=== PATIENT | female | born 1960 | race Caucasian/White ===

== ENCOUNTER 2020-05-18 08:21 | Inpatient (IN) ==
[~2020-05-18 08:21] MED LIST: ISOPROPYL ALCOHOL 480 APPL BTL MC ONE; MORPHINE SULFATE 15 MG TABLET.SA PO PRN; ROPIVACAINE HCL/PF 100 MG, EPINEPHrine 0.2 MG, KETOROLAC TROMETHAMINE 30 MG in NORMAL S... IJ PRN; TRANEXAMIC ACID 1,000 MG in NORMAL SALINE 100 ML IV PRN; ceFAZolin SODIUM 1 GM VIAL IV PRN; ceFAZolin SODIUM 1 GM VIAL ONE
[2020-05-18] MEDS ORDERED: BUPIVACAINE HCL/EPINEPHRINE 50 ML VIAL IJ ONE (08:49)
[2020-05-18] MEDS ORDERED: PROPOFOL VIAL IV ONE (08:50)
[2020-05-18] MEDS ORDERED: MIDAZOLAM HCL/PF 5 MG/ML VIAL ONE (08:50)
[2020-05-18] MEDS ORDERED: BUPIVACAINE HCL/PF 10 ML VIAL ONE (08:50)
[2020-05-18] MEDS: RINGER'S SOLUTION,LACTATED 1,000 ML IV PRN ×3 (08:54→11:05)
--- NOTE | 2020-05-18 09:15 | ANES ---
Anesthesia Pre Procedure Eval Vitals/Labs: Last Vital Signs Temp 36.7 C 05/18/20 08:32 Pulse 96 05/18/20 08:32 Resp 18 05/18/20 08:32 BP 125/73 05/18/20 08:32 Pulse Ox 96 05/18/20 08:32 HOME MEDICATIONS acetaminophen 500 mg tablet 500 mg PO Q6H PRN 05/23/19 [Last Taken Unknown] glucosamine HCl 500 mg tablet 500 mg PO DAILY 05/23/19 [Last Taken Unknown] ibuprofen 200 mg tablet 400 mg PO TID-QID PRN tab 05/23/19 [Last Taken Unknown] multivitamin 1 cap PO DAILY 05/23/19 [Last Taken Unknown] calcium carbonate 600 mg (1,500 mg)-vitamin D3 500 unit capsule 1 cap PO DAILY 04/28/20 [Last Taken Unknown] diphenhydramine HCl 25 mg capsule 50 mg PO HS cap 04/28/20 [Last Taken Unknown] melatonin 10 mg capsule 10 mg PO HS 04/28/20 [Last Taken Unknown] Allergies/Adverse Reactions: Allergies Allergy/AdvReac Type Severity Reaction Status Date / Time No Known Allergies Allergy Verified 05/18/20 08:34 - Planned Procedure Planned Procedure: RTKA 05/18, LTKA 05/20 Medication List Reviewed:: Yes Allergies Verified: Yes Medical History (Last Reviewed 05/18/20 @ 09:13 by Perez Tucker CRNA) Bilateral knee pain Onset Date: Unknown Irritable bowel syndrome (IBS) Onset Date: Unknown Seasonal allergies Onset Date: Unknown Surgical History (Last Reviewed 05/18/20 @ 09:13 by Perez Tucker CRNA) History of section x2 History of tonsillectomy Onset Date: Unknown as a child Family History (Last Reviewed 05/18/20 @ 09:13 by Perez Tucker CRNA) Mother A-fib Hypertension Kidney failure Father Motor vehicle accident - Family Anesthesia History Family History:: no untoward family reactions to anesthesia - Airway/Neck/Teeth Within Normal Limits:: Yes Teeth Condition: intact Denture Type: None Neck Exam: full range of motion Mallampatti Score: 2 Thyromental (T-M) distance: > 6 cm Mandibulo Hyoid distance: > 3 cm - Respiratory Respiratory Physical: lungs clear Smoking Status: Never smoker Sleep Apnea currently treated: No Sleep Apnea by current assessment: No - Cardiovascular Tolerate Activity: Fair Heart Sounds: S1 & S2, Regular - Gastrointestinal NPO since: [place] - Anesthesia Assessment and Plan ASA Class: PS, II Anesthesia Type Plan: Spinal - adductor canal block Planned difficult intubation/equipment available: No
[2020-05-18] MEDS ORDERED: MAG HYDROX/ALUMINUM HYD/SIMETH 30 ML UDC PO PRN (11:28)
[2020-05-18] MEDS ORDERED: MORPHINE SULFATE 2 MG/ML DISP.SYRIN IV PRN (11:28)
[2020-05-18] MEDS ORDERED: MAGNESIUM HYDROXIDE 30 ML UDC PO PRN (11:28)
[2020-05-18] MEDS ORDERED: diphenhydrAMINE HCL 50 MG/ML VIAL IV PRN (11:28)
[2020-05-18] MEDS ORDERED: ZOLPIDEM TARTRATE 5 MG TABLET PO PRN (11:28)
[2020-05-18] MEDS ORDERED: ACETAMINOPHEN 500 MG TABLET PO PRN (11:28)
--- NOTE | 2020-05-18 11:28 | OR ---
Operative Report - Dictated Report Narrative: Date: 05/18/2020 Preoperative diagnosis: Right knee degenerative joint disease. Postoperative diagnosis: Right knee degenerative joint disease. Procedure: Right total knee arthroplasty. Surgeon: Rodrigo King M.D. Airway Traffic Controller: Flo Ryan PA-C (provided and essential set of skilled, educated hands that assisted with transfer, positioning, prepping, draping, manipulation, retraction, placement of jigs, injection, insertion of implants, irrigation, closure wounds, and dressings all of which could not be performed by the available surgical crew) Anesthesia: Spinal with regional block and local periarticular joint injection. Complications: None Specimens: Bone. Estimated blood loss: Minimal. Tourniquet time: 90 Minutes at 325 millimeters of mercury. Retained implants: Depuy Attune size 6 narrow right lugged cemented posterior stabilized femoral component. Size 4 fixed-bearing cemented tibial platform. 6 by 5 millimeter posterior stabilized cross-linked tibial insert. 35 millimeter medialized patella button. Indications: Mrs. Austin is a 59-year-old female who with longstanding bilateral knee pain and arthrosis. She is here today for her first of 2 staged bilateral total knee arthroplasties. Today is the right. This patient was followed in my clinic for period of time with significant complaints of right knee pain consistent with arthritic changes. She had failed conservative measures including, but not limited to, activity modification, passage of time, medications, and other conservative measures. Patient wished to proceed with surgical treatment. The risks, benefits, and alternatives were discussed in clinic. The risks of , blood clots, bleeding, infection, nerve/tendon blood vessel/ injury, malposition of components, intraoperative fracture, postoperative limited range of motion, persistent pain, failure of components, and need for additional procedures. Patient wished to proceed consent was obtained after answering all questions. Procedure: After marking the correct extremity on the floor, the patient was miki en to the operating room. A timeout was performed. IV antibiotics consisting of Ancef were administered prior to the procedure. A regional followed by spinal anesthetic was induced by anesthesia, per my request, on the operative table with all bony prominences well-padded. Bell catheter was placed, and a bump was placed under the operative side buttock. SCDs and JUDITH hose were utilized on the nonoperative leg. A well-padded tourniquet was applied to the operative thigh. The operative leg was then pre-scrubbed with alcohol, prepped, and draped in a standard sterile fashion. After exsanguinating the extremity with an Esmarch bandage, the tourniquet was inflated. After marking out the anterior knee for standard incision centered over the patella, the skin was incised and dissected down to the joint retinaculum. The joint retinaculum was marked out as well as the horizontal axis of the patella, and a standard medial parapatellar arthrotomy was then made. The most proximal aspect of the quadriceps tendon and the patella tendon insertion were protected from release. A partial synovectomy was performed as well as a resection of the infrapatellar fat pad. The distal femoral fat pad proximal to the trochlea was also resected using cautery. The soft tissues were elevated off the medial aspect of the proximal tibia using a Blanton elevator ensuring that we did not transect the medial collateral ligament. Upon initial evaluation range of motion was approximately 5 degrees to 110 degrees of flexion. There were signs of advanced arthrosis in the medial and patellofemoral greater than lateral joint spaces. There were large marginal osteophytes which were removed with a rongeur. The knee was hyperflexed and the patella was tucked laterally. Protecting the surrounding soft tissues with Homans, an entry drill was placed down the femoral canal using Whitesides line for guidance into the entry point. The intramedullary femoral alignment elliot was utilized in order to cut the distal femur in 5 degrees of valgus resecting 10 millimeters of bone. Next the distal femur was sized to a size 6. A posterior referencing guide was utilized to place the distal femoral cutting block in 3 degrees of external rotation. This was pinned into place. The rotation was confirmed both visually and based on anatomic landmarks. The 4 in 1 cutting jig of the appropriate size was utilized in order to make all bony cuts. The bhavin wing was used to ensure no notching. Retractors were utilized in order to protect surrounding soft tissues. This cut did not result in any excessive notching. We then cut the box centered over the distal femur. This allowed for resection of the anterior and posterior cruciate ligaments. I then turned my attention to the preparation of the tibia. Using an extra medullary tibial alignment elliot, 5 millimeters of bone was resected off the medial articular surface. This was made perpendicular to the mechanical axis of the joint with the alignment elliot centered over the ankle mortise. The alignment elliot was checked and was noted to be parallel to the mechanical axis, centered over the medial one third of the tibial tubercle, paralleling the anterior surface of the tibia. We then turned our attention to the remaining meniscus and soft tissues. These were removed while protecting the surrounding ligaments and soft tissues. The marginal osteophytes off the anterior, posterior, medial, lateral aspects of the femur and tibia were removed. The tibia was sized out to a size 4. Next the tibia was drilled and punched in an externally rotated position. Next the trial femur and a series of tibial inserts were utilized in order to allow for full extension and maximal flexion. It was found that a 5 millimeter insert gave the best range of motion and stability at multiple flexion points as well as at full extension there was less than 2 mm of gapping both medially and laterally. There is minimal anterior translation with the knee at 90 degrees of flexion and no signs of being able to dislocate the knee. The patella was then prepared. The initial thickness was 20 millimeters. This was reamed down to 12 millimeters parallel to the anterior surface of the patella. It was sized out to a size 35 medialized patella button. This was then drilled and trialed. Without any medial restraint the patella tracked appropriately and did not sublux or dislocate. At this point, it was felt these were the appropriate sized implants, and all trials were removed. The standard periarticular joint injection consisting of ropivacaine, Toradol, and epinephrine were injected into the periarticular joint tissues. The bony surfaces were thoroughly irrigated with a pulsatile-suction saline irrigation device. A bone plug from the prior resected anterior chamfer cut was placed into the drill hole at the distal femur. The bony surfaces were then dried in preparation for placement of the implants. The cement was vacuum mixed per the polystyrene bead molder's instructions. The cement was placed on the dry bony surfaces and posterior aspect of the implants. The implants were impacted into place, removing all extruded cement. At this point anesthesia administered tranexamic acid per protocol intravenously. The knee was placed in extension with axial loading with the trial insert while the cement cured. Once the cement cured, all remaining extruded cement was removed. The knee was placed through a range of motion with the trial insert to ensure appropriate range of motion and stability. Final range of motion was approximately 0 to 120 degrees. The knee was again thoroughly irrigated with pulsatile saline lavage. The final polyethylene insert was then impacted into place ensuring no retained soft tissues. The remaining periarticular joint injection was injected. A medium Hemovac drain was placed exiting superior laterally. The knee was then placed over a triangle and the arthrotomy was closed with interrupted #1 Vicryl after thoroughly irrigating the joint. The deep and subcutaneous tissues were closed with interrupted 0 and 3-0 Vicryl respectively. Skin was closed with a running subcutaneous 3-0 Monocryl and Prineo Dermabond dressing. 4 x 4's, Sof-Rol, and a full leg Enrike wrap were applied. All sponge, needle, blade, and instrument counts were correct prior to closing the wounds. Postoperative condition: The patient was awoken and transferred to the postanesthesia care unit in stable condition. Plan is to be admitted to the inpatient medical/surgical floor postoperatively for 24 hours of IV antibiotics, physical therapy, occupational therapy, and medical comanagement. Patient will be weightbearing as tolerated with range of motion as tolerated. DVT prophylaxis will be with SCDs, JUDITH hose, and pharmacological anticoagulation. Anticipated hospital stay is approximately 1-3 days.
--- NOTE | 2020-05-18 11:46 | ANES ---
Post Anesthesia Discharge - Transfer of Care Transfer of Care handoff given to nurse: Yes - Discharge from PACU Discharge from PACU when meets criteria: Yes
--- NOTE | 2020-05-18 11:49 | ANES ---
Anesthesia Procedure Note Procedure Note: ANESTHESIA PROCEDURE NOTE Date of procedure: 05/18/2020. Time of procedure: 08 05. Performed by: Claudio Tucker CRNA Senior Data Mining Analyst: Miya Duncan RN . Preprocedure diagnosis: Right knee DJD. Post procedure diagnosis: Same. Procedure: Ultrasound-guided right adductor canal block Indications: Postoperative analgesia. Findings: Patient was brought operating room #2 and given a spinal anesthetic. Patient's right inner thigh was prepped with ChloraPrep. Ultrasound utilized to identify the saphenous nerve in the right adductor canal. 20-gauge 4 inch regional block needle was advanced under ultrasound guidance until tip of needle was placed just proximal to the saphenous nerve. 30 mL of 0.25% Marcaine with epinephrine 1-200,000 was injected with adequate spread of local anesthesia noted around the nerve. Regional block needle was removed intact. EBL: Minimal. Fluids: N/A. Specimen: N/A. Post procedure condition: The patient tolerated the procedure well. No complications were noted. Thank you for this consultation Claudio Tucker CRNA
--- NOTE | 2020-05-18 11:50 | ANES ---
Post Anesthesia Assessment - Vital Signs Vitals: Last Vital Signs Temp 36.7 C 05/18/20 11:40 Pulse 65 05/18/20 11:45 Resp 20 05/18/20 11:45 BP 121/65 05/18/20 11:45 Pulse Ox 98 05/18/20 11:45 Airway Patency: Normal - Mental Status Level Of Consciousness: Drowsy - Pain Level Pain Score: 0 - N/V Assessment Nausea/Vomiting Presence: None Dehydration:: No
[2020-05-18] MEDS: DEXTROSE 5%-LACTATED RINGERS 1,000 ML IV PRN (12:26)
[2020-05-18] MEDS: KETOROLAC TROMETHAMINE 15 MG/ML VIAL IV SCH ×2 (14:00→19:19)
[2020-05-18] MEDS: ONDANSETRON HCL/PF 2 MG/ML VIAL IV PRN (15:19)
[2020-05-18] MEDS: ceFAZolin SODIUM 1 GM in DEXTROSE 5 % IN WATER 100 ML IV SCH ×4 (15:26→20:47)
[2020-05-18] MEDS: oxyCODONE HCL/ACETAMINOPHEN 1 TAB TABLET PO PRN (16:16)
[2020-05-18] MEDS: SENNOSIDES/DOCUSATE SODIUM 1 TAB TABLET PO SCH (20:46)
[2020-05-18] MEDS: MORPHINE SULFATE 15 MG TABLET.SA PO SCH (20:47)
[2020-05-18] MEDS: MELATONIN 3,000 MCG TABLET PO SCH (22:36)
[2020-05-19] MEDS: KETOROLAC TROMETHAMINE 15 MG/ML VIAL IV SCH ×4 (02:00→19:39)
[2020-05-19] MEDS: ceFAZolin SODIUM 1 GM in DEXTROSE 5 % IN WATER 100 ML IV SCH ×2 (02:01)
[2020-05-19 06:29] LABS: Hematocrit 33.4 % (37.0-47.0); Hemoglobin 11.1 gm/dL (12.5-16.0); Mean Cell Volume 93.8 fl (78-100); Mean Corpuscular Hemoglobin 31.2 pg (27-31); Mean Corpuscular Hgb Conc 33.2 g/dl (32-36); Mean Platelet Volume 9.2 fl (8-12.5); Platelet Count 185 K/mm3 (150-450); Red Blood Count 3.56 M/mm3 (4.2-5.4); Red Cell Distribution Width 11.9 % (11.5-14.0)
[2020-05-19] MEDS: oxyCODONE HCL/ACETAMINOPHEN 1 TAB TABLET PO PRN ×4 (06:29→16:45)
[2020-05-19 06:38] LABS: Anion Gap 5.7 mmol/L (6.8-13.8); BUN/Creatinine Ratio 10.4 (9.0-21.6); Calcium * 9.1 mg/dL (7.9-10.9); Potassium 3.7 mmol/L (3.4-4.6)
[2020-05-19] MEDS ORDERED: ceFAZolin SODIUM 1 GM VIAL IV PRN (07:54)
--- NOTE | 2020-05-19 07:59 | PN ---
Subjective - Date and Time Seen Date: 05/19/20 Time: 07:55 Subjective Narrative: Patient reports pain is controlled. No lightheadedness or dizziness. No chest pain or shortness of breath. Has no complaints at this time. Was able to eat breakfast this morning. Nursing reports she is doing well. Objective Objective Narrative: Patient is up in chair. She is alert and oriented. In no distress. Bandages clean dry intact. Drain intact. Calf supple. Patient is able to plantarflex and dorsiflex right ankle. Reports sensation intact. Labs reviewed showing a hemoglobin of 11.1 down from 12.3 preoperatively. Vital signs stable. Drain output decreasing. - Vitals Vitals: Last Vital Signs Temp 37.5 C 05/19/20 06:36 Pulse 65 05/19/20 06:36 Resp 16 05/19/20 06:36 BP 156/74 H 05/19/20 06:36 Pulse Ox 94 05/19/20 06:36 - Abnormal Lab Findings Abnormal Lab Findings: Abnormal Lab Results 05/19/20 05/19/20 Range/Units 06:25 06:25 RBC 3.56 L (4.2-5.4) M/mm3 Hgb 11.1 L (12.5-16.0) gm/dL Hct 33.4 L (37.0-47.0) % MCH 31.2 H (27-31) pg Carbon Dioxide 33.0 H (24-32.6) mmol/L Anion Gap 5.7 L (6.8-13.8) mmol/L - Exam Constitutional: Present: Alert, Oriented x3, Cooperative, No distress Cauti Physician Documentation - Urinary Catheter Management Urethral (Bell) Date of Insertion: 05/18/20 Time of Insertion: 09:50 Assessment/Plan - Problems/Diagnosis (1) Status post right knee replacement Problem: Acute Narrative: Pain control, physical therapy, anticoagulation, patient will be n.p.o. at midnight tonight in preparation for left total knee arthroplasty tomorrow, leg was marked today. (2) Acute blood loss anemia Problem: Acute Narrative: Asymptomatic, observation
[2020-05-19] MEDS: MORPHINE SULFATE 15 MG TABLET.SA PO SCH ×2 (08:47→21:36)
[2020-05-19] MEDS: CALCIUM CARBONATE/VITAMIN D3 1 TAB TABLET PO SCH (08:47)
[2020-05-19] MEDS: MULTIVITAMINS 1 CAP CAPSULE PO SCH (08:47)
[2020-05-19] MEDS ORDERED: ENOXAPARIN SODIUM 40 MG/0.4 ML SYRG SC SCH (10:28)
[2020-05-19] MEDS: SENNOSIDES/DOCUSATE SODIUM 1 TAB TABLET PO SCH (21:36)
[2020-05-19] MEDS: MELATONIN 3,000 MCG TABLET PO SCH (21:36)
[2020-05-20] MEDS: KETOROLAC TROMETHAMINE 15 MG/ML VIAL IV SCH ×5 (00:16→22:29)
[2020-05-20] MEDS: oxyCODONE HCL/ACETAMINOPHEN 1 TAB TABLET PO PRN ×3 (04:55→22:11)
[2020-05-20] MEDS ORDERED: TRANEXAMIC ACID 1,000 MG in NORMAL SALINE 100 ML IV PRN (06:00)
[2020-05-20] MEDS ORDERED: ceFAZolin SODIUM 1 GM VIAL IV PRN (06:00)
[2020-05-20] MEDS ORDERED: ROPIVACAINE HCL/PF 100 MG, EPINEPHrine 0.2 MG, KETOROLAC TROMETHAMINE 30 MG in NORMAL S... IJ PRN (06:00)
[2020-05-20] MEDS: RINGER'S SOLUTION,LACTATED 1,000 ML IV PRN ×2 (06:40→09:50)
--- NOTE | 2020-05-20 07:20 | ANES ---
Anesthesia Pre Procedure Eval Vitals/Labs: Last Vital Signs Temp 36.7 C 05/19/20 23:17 Pulse 55 L 05/20/20 02:06 Resp 16 05/20/20 02:06 BP 114/59 05/20/20 02:06 Pulse Ox 97 05/19/20 23:17 HOME MEDICATIONS acetaminophen 500 mg tablet 500 mg PO Q6H PRN 05/23/19 [Last Taken Unknown] glucosamine HCl 500 mg tablet 500 mg PO DAILY 05/23/19 [Last Taken Unknown] ibuprofen 200 mg tablet 400 mg PO TID-QID PRN tab 05/23/19 [Last Taken Unknown] multivitamin 1 cap PO DAILY 05/23/19 [Last Taken Unknown] calcium carbonate 600 mg (1,500 mg)-vitamin D3 500 unit capsule 1 cap PO DAILY 04/28/20 [Last Taken Unknown] diphenhydramine HCl 25 mg capsule 50 mg PO HS cap 04/28/20 [Last Taken Unknown] melatonin 10 mg capsule 10 mg PO HS 04/28/20 [Last Taken Unknown] Allergies/Adverse Reactions: Allergies Allergy/AdvReac Type Severity Reaction Status Date / Time No Known Allergies Allergy Verified 05/18/20 08:34 - Planned Procedure Planned Procedure: RTKA 05/18, LTKA 05/20 Medication List Reviewed:: Yes Allergies Verified: Yes Medical History (Last Reviewed 05/20/20 @ 07:18 by Dipesh Martinez CRNA) Bilateral knee pain Onset Date: Unknown Irritable bowel syndrome (IBS) Onset Date: Unknown Seasonal allergies Onset Date: Unknown Surgical History (Last Reviewed 05/20/20 @ 07:18 by Dipesh Martinez CRNA) History of section x2 History of tonsillectomy Onset Date: Unknown as a child Family History (Last Reviewed 05/20/20 @ 07:18 by Dipesh Martinez CRNA) Mother A-fib Hypertension Kidney failure Father Motor vehicle accident - Family Anesthesia History Family History:: no untoward family reactions to anesthesia, no familial bleeding tendencies, no family history of clotting disorders, no family history of premature - Airway/Neck/Teeth Within Normal Limits:: Yes Teeth Condition: intact Mallampatti Score: 2 Thyromental (T-M) distance: > 6 cm Mandibulo Hyoid distance: > 3 cm - Respiratory Respiratory Physical: lungs clear Smoking Status: Never smoker Discussed smoking cessation including day of surgery: No Sleep Apnea currently treated: No Sleep Apnea by current assessment: No Discussed Risks/Treatment of TIERA: No - Cardiovascular Tolerate Activity: Fair Heart Sounds: S1 & S2, Regular - Gastrointestinal NPO since: [place] - Anesthesia Assessment and Plan ASA Class: PS, II Anesthesia Type Plan: Block - Left ultrasound guided adductor canal nerve block for postop analgesia, Spinal
[2020-05-20] MEDS: MORPHINE SULFATE 15 MG TABLET.SA PO SCH ×3 (07:40→20:37)
[2020-05-20] MEDS ORDERED: LIDOCAINE HCL 20 ML VIAL ONE (07:45)
[2020-05-20] MEDS ORDERED: BUPIVACAINE HCL/EPINEPHRINE/PF 30 ML VIAL IJ ONE (07:45)
[2020-05-20] MEDS ORDERED: ONDANSETRON HCL/PF 2 MG/ML VIAL ONE (07:45)
[2020-05-20] MEDS ORDERED: fentaNYL CITRATE/PF 50 MCG/ML AMPUL ONE (07:45)
[2020-05-20] MEDS ORDERED: PROPOFOL VIAL IV ONE (07:46)
[2020-05-20] MEDS ORDERED: DEXTROSE 5%-LACTATED RINGERS 1,000 ML IV PRN (10:26)
--- NOTE | 2020-05-20 10:26 | OR ---
Operative Report - Dictated Report Narrative: Date: 05/20/2020 Preoperative diagnosis: Left knee degenerative joint disease. Postoperative diagnosis: Left knee degenerative joint disease. Procedure: Left total knee arthroplasty. Surgeon: Rodrigo King M.D. Hand Zipper Trimmer: Flo Ryan PA-C (provided and essential set of skilled, educated hands that assisted with transfer, positioning, prepping, draping, manipulation, retraction, placement of jigs, injection, insertion of implants, irrigation, closure wounds, and dressings all of which could not be performed by the available surgical crew) Anesthesia: Spinal with regional block and local periarticular joint injection. Complications: None Specimens: Bone. Estimated blood loss: Minimal. Tourniquet time: 85 Minutes at 325 millimeters of mercury. Retained implants: Depuy Attune size 5 narrow left lugged cemented posterior stabilized femoral component. Size 4 fixed-bearing cemented tibial platform. 5 by 5 millimeter posterior stabilized cross-linked tibial insert. 35 millimeter medialized patella button. Indications: Mrs. Austin is a 59-year-old female who is here today for her second of 2 staged bilateral total knee arthroplasties. Today is the left. This patient was followed in my clinic for period of time with significant complaints of left knee pain consistent with arthritic changes. She had failed conservative measures including, but not limited to, activity modification, passage of time, medications, and other conservative measures. Patient wished to proceed with surgical treatment. The risks, benefits, and alternatives were discussed in clinic. The risks of , blood clots, bleeding, infection, nerve/tendon blood vessel/ injury, malposition of components, intraoperative fracture, postoperative limited range of motion, persistent pain, failure of components, and need for additional procedures. Patient wished to proceed consent was obtained after answering all questions. Procedure: After marking the correct extremity on the floor, the patient was taken to the operating room. A timeout was performed. IV antibiotics consisting of Ancef were administered prior to the procedure. A regional followed by spinal anesthetic was induced by anesthesia, per my request, on the operative table with all bony prominences well-padded. Bell catheter was already in place, and a bump was placed under the operative side buttock. SCDs and JUDITH hose were utilized on the nonoperative leg. A well-padded tourniquet was applied to the operative thigh. The operative leg was then pre-scrubbed with alcohol, prepped, and draped in a standard sterile fashion. After exsanguinating the extremity with an Esmarch bandage, the tourniquet was inflated. After marking out the anterior knee for standard incision centered over the patella, the skin was incised and dissected down to the joint retinaculum. The joint retinaculum was marked out as well as the horizontal axis of the patella, and a standard medial parapatellar arthrotomy was then made. The most proximal aspect of the quadriceps tendon and the patella tendon insertion were protected from release. A partial synovectomy was performed as well as a resection of the infrapatellar fat pad. The distal femoral fat pad proximal to the trochlea was also resected using cautery. The soft tissues were elevated off the medial aspect of the proximal tibia using a Blanton elevator ensuring that we did not transect the medial collateral ligament. Upon initial evaluation range of motion was approximately 5 degrees to 105 degrees of flexion. There were signs of advanced arthrosis in the medial, lateral, and patellofemoral joint spaces. There were large marginal osteophytes which were removed with a rongeur. The knee was hyperflexed and the patella was tucked laterally. Protecting the surrounding soft tissues with Homans, an entry drill was placed down the femoral canal using Whitesides line for guidance into the entry point. The intramedullary femoral alignment elliot was utilized in order to cut the distal femur in 5 degrees of valgus resecting 10 millimeters of bone. Next the distal femur was sized to a size 5. A posterior referencing guide was utilized to place the distal femoral cutting block in 3 degrees of external rotation. This was pinned into place. The rotation was confirmed both visually and based on anatomic landmarks. The 4 in 1 cutting jig of the appropriate size was utilized in order to make all bony cuts. The bhavin wing was used to ensure no notching. Retractors were utilized in order to protect surrounding soft tissues. This cut did not result in any excessive notching. We then cut the box centered over the distal femur. This allowed for resection of the anterior and posterior cruciate ligaments. I then turned my attention to the preparation of the tibia. Using an extra medullary tibial alignment elliot, 6 millimeters of bone was resected off the medial articular surface. This was made perpendicular to the mechanical axis of the joint with the alignment elliot centered over the ankle mortise. The alignment elliot was checked and was noted to be parallel to the mechanical axis, centered over the medial one third of the tibial tubercle, paralleling the anterior surface of the tibia. We then turned our attention to the remaining meniscus and soft tissues. These were removed while protecting the surrounding ligaments and soft tissues. The marginal osteophytes off the anterior, posterior, medial, lateral aspects of the femur and tibia were removed. The tibia was sized out to a size 4. Next the tibia was drilled and punched in an externally rotated position. Next the trial femur and a series of tibial inserts were utilized in order to allow for full extension and maximal flexion. It was found that a 5 millimeter insert gave the best range of motion and stability at multiple flexion points as well as at full extension there was less than 2 mm of gapping both medially and laterally. There is minimal anterior translation with the knee at 90 degrees of flexion and no signs of being able to dislocate the knee. The patella was then prepared. The initial thickness was 20 millimeters. This was reamed down to 12 millimeters parallel to the anterior surface of the patella. It was sized out to a size 35 medialized patella button. This was then drilled and trialed. Without any medial restraint the patella tracked appropriately and did not sublux or dislocate. At this point, it was felt these were the appropriate sized implants, and all trials were removed. The standard periarticular joint injection consisting of ropivacaine, Toradol, and epinephrine were injected into the periarticular joint tissues. The bony surfaces were thoroughly irrigated with a pulsatile-suction saline irrigation device. A bone plug from the prior resected anterior chamfer cut was placed into the drill hole at the distal femur. The bony surfaces were then dried in preparation for placement of the implants. The cement was vacuum mixed per the capital campaign fundraiser's instructions. The cement was placed on the dry bony surfaces and posterior aspect of the implants. The implants were impacted into place, removing all extruded cement. At this point anesthesia administered tranexamic acid per protocol intravenously. The knee was placed in extension with axial loading with the trial insert while the cement cured. Once the cement cured, all remaining extruded cement was removed. The knee was placed through a range of motion with the trial insert to ensure appropriate range of motion and stability. Final range of motion was approximately 0 to 120 degrees. The knee was again thoroughly irrigated with pulsatile saline lavage. The final polyethylene insert was then impacted into place ensuring no retained soft tissues. The remaining periarticular joint injection was injected. A medium Hemovac drain was placed exiting superior laterally. The knee was then placed over a triangle and the arthrotomy was closed with interrupted #1 Vicryl after thoroughly irrigating the joint. The deep and subcutaneous tissues were closed with interrupted 0 and 3-0 Vicryl respectively. Skin was closed with a running subcutaneous 3-0 Monocryl and Prineo Dermabond dressing. 4 x 4's, Sof-Rol, and a full leg Enrike wrap were applied. All sponge, needle, blade, and instrument counts were correct prior to closing the wounds. Postoperative condition: The patient was awoken and transferred to the postanesthesia care unit in stable condition. Plan is to be admitted to the inpatient medical/surgical floor postoperatively for 24 hours of IV antibiotics, physical therapy, occupational therapy, and medical comanagement. Patient will be weightbearing as tolerated with range of motion as tolerated. DVT prophylaxis will be with SCDs, JUDITH hose, and pharmacological anticoagulation. Anticipated hospital stay is approximately 1-3 days.
--- NOTE | 2020-05-20 10:45 | ANES ---
Post Anesthesia Discharge - Transfer of Care Transfer of Care handoff given to nurse: Yes - Discharge from PACU Discharge from PACU when meets criteria: Yes - Discharge to ASU Discharge to ASU-no complications/pt stable: Yes
--- NOTE | 2020-05-20 10:46 | ANES ---
Anesthesia Procedure Note Procedure Note: ANESTHESIA PROCEDURE NOTE Date of Procedure: 05/20/2020. Time of procedure: 824. Performed by: Dipesh Martinez CRNA Restorative Aide: None. Preprocedure diagnosis: Left knee degenerative joint disease. Post procedure diagnosis: Same. Procedure: Left ultrasound guided adductor canal block for postoperative analgesia. Indications: The patient is a 59-year-old female, requesting left ultrasound- guided abductor canal block for postoperative analgesia related to left total hip arthroplasty. Findings: See below. Details of the procedure: The tissue over the intended target site was cleansed with ChloraPrepand draped in a sterile fashion. 2 ml Lidocaine 1 % was infiltrated to the skin and subcutaneous tissue at the intended target site. Under sterile technique and ultrasound guidance a 20-gauge block needle was inserted through the left sartorius muscle to the saphenous nerve just anterior and medial to the superficial femoral artery and vein. 15 mL's of 0.5% bupivacaine was injected after negative aspiration for blood. Needle tip and spread of local anesthetic surrounding the saphenous nerve was observed throughout the injection with real time ultrasound visualization. The needle was then removed intact. No complications were noted. The images were retained in the Hospital medical database. EBL: Minimal. Fluids: N/A. Specimen: N/A. Post procedure condition: The patient tolerated the procedure well. No complications were noted. Thank you for this consultation. Dipesh Martinez CRNA
[2020-05-20] MEDS ORDERED: NALOXONE HCL 0.4 MG/ML VIAL IV PRN (10:47)
[2020-05-20] MEDS ORDERED: HYDROmorphone HCL 2 MG/ML VIAL IV PRN (10:47)
[2020-05-20] MEDS ORDERED: PROCHLORPERAZINE EDISYLATE 5 MG/ML VIAL IV PRN (10:47)
[2020-05-20] MEDS ORDERED: HYDROmorphone HCL 2 MG/ML VIAL ONE (10:56)
[2020-05-20] MEDS: ceFAZolin SODIUM 1 GM in DEXTROSE 5 % IN WATER 100 ML IV SCH ×4 (11:42→17:41)
--- NOTE | 2020-05-20 13:39 | ANES ---
Post Anesthesia Assessment - Vital Signs Vitals: Last Vital Signs Temp 36.6 C 05/20/20 11:43 Pulse 58 L 05/20/20 12:28 Resp 14 05/20/20 11:43 BP 120/63 05/20/20 12:28 Pulse Ox 96 05/20/20 12:28 Airway Patency: Normal - Mental Status Level Of Consciousness: Awake - Pain Level Pain Score: 5 - N/V Assessment Nausea/Vomiting Presence: None Dehydration:: No
[2020-05-20] MEDS: CALCIUM CARBONATE/VITAMIN D3 1 TAB TABLET PO SCH (14:55)
[2020-05-20] MEDS: MULTIVITAMINS 1 CAP CAPSULE PO SCH (14:55)
[2020-05-20] MEDS: ONDANSETRON HCL/PF 2 MG/ML VIAL IV PRN (18:42)
[2020-05-20] MEDS: MELATONIN 3,000 MCG TABLET PO SCH (20:30)
[2020-05-20] MEDS: SENNOSIDES/DOCUSATE SODIUM 1 TAB TABLET PO SCH (20:31)
[2020-05-20] MEDS: DEXTROSE 5%-LACTATED RINGERS 1,000 ML IV PRN (20:37)
[2020-05-21] MEDS: ceFAZolin SODIUM 1 GM in DEXTROSE 5 % IN WATER 100 ML IV SCH ×2 (00:40)
[2020-05-21] MEDS: oxyCODONE HCL/ACETAMINOPHEN 1 TAB TABLET PO PRN ×5 (02:35→20:00)
[2020-05-21] MEDS: KETOROLAC TROMETHAMINE 15 MG/ML VIAL IV SCH ×4 (04:28→21:51)
[2020-05-21 06:42] LABS: Hematocrit 26.8 % (37.0-47.0); Hemoglobin 8.8 gm/dL (12.5-16.0); Mean Cell Volume 94.7 fl (78-100); Mean Corpuscular Hemoglobin 31.1 pg (27-31); Mean Corpuscular Hgb Conc 32.8 g/dl (32-36); Mean Platelet Volume 9.7 fl (8-12.5); Platelet Count 170 K/mm3 (150-450); Red Blood Count 2.83 M/mm3 (4.2-5.4); Red Cell Distribution Width 11.9 % (11.5-14.0)
[2020-05-21 06:57] LABS: Anion Gap 6.7 mmol/L (6.8-13.8); BUN/Creatinine Ratio 8.8 (9.0-21.6); Calcium * 8.4 mg/dL (7.9-10.9); Carbon Dioxide 31.1 mmol/L (24-32.6); Potassium 3.8 mmol/L (3.4-4.6)
[2020-05-21] MEDS: ONDANSETRON HCL/PF 2 MG/ML VIAL IV PRN ×2 (07:41→11:46)
--- NOTE | 2020-05-21 08:31 | PN ---
Subjective - Date and Time Seen Date: 05/21/20 Time: 08:28 Subjective Narrative: Subjective: Reports left hip pain. Was able to take a few steps with therapy. Pain is well-controlled. Voiding without any complications. Tolerating by mouth intake. Denies any nausea or vomiting. Denies calf pain. Slept well. Physical exam: Alert and oriented to person, place and time Bilateral lower extremity: Palpable dorsalis pedis pulse. Sensation grossly intact to light touch. Dressings clean and dry. Able to flex and extend ankle and toes. No excessive drainage. Calf and thigh are soft and nontender. Assessment: Postop day 1 status post left total knee arthroplasty, postop day 3 status post right total knee arthroplasty. Plan: Due to the need for pain control, post-operative limited mobility, protection of the surgical site and joint, monitoring of the wound, and the management of chronic medical conditions, she requires continued inpatient care. Continue with physical and occupational therapy weightbearing as tolerated. Continue with anticoagulation. 24 hours postoperative prophylactic antibiotics. Pain control with goal to rely on oral medications. Continue bowel regimen. Will need 6 weeks with walker or assitive device to protect joint while ambulating during the recovery process. Discharge planning. Discontinue drain and Bell catheter. Objective - Vitals Vitals: Last Vital Signs Temp 37.1 C 05/21/20 08:03 Pulse 93 05/21/20 08:03 Resp 18 05/21/20 08:03 BP 145/70 05/21/20 08:03 Pulse Ox 93 05/21/20 08:03 - Abnormal Lab Findings Abnormal Lab Findings: Abnormal Lab Results 05/21/20 05/21/20 Range/Units 06:28 06:28 RBC 2.83 L (4.2-5.4) M/mm3 Hgb 8.8 L (12.5-16.0) gm/dL Hct 26.8 L (37.0-47.0) % MCH 31.1 H (27-31) pg Anion Gap 6.7 L (6.8-13.8) mmol/L BUN/Creatinine Ratio 8.8 L (9.0-21.6) Random Glucose 111 H (70-110) mg/dL Cauti Physician Documentation - Urinary Catheter Management Urethral (Bell) Date of Insertion: 05/18/20 Time of Insertion: 09:50 Date of Removal: 05/21/20 Time of Removal: 05:40 Assessment/Plan - Problems/Diagnosis (1) Left hip pain Problem: Chronic Narrative: Utilizing topical medications as well as her postoperative pain meds. Encouraged to increase her activity (2) Status post left knee replacement Problem: Acute (3) Acute blood loss anemia Problem: Acute Narrative: We will continue to monitor for now. Started on iron (4) Status post right knee replacement Problem: Acute
[2020-05-21] MEDS: FERROUS SULFATE 325 MG TABLET PO SCH ×2 (09:27→17:49)
[2020-05-21] MEDS: MULTIVITAMINS 1 CAP CAPSULE PO SCH (09:27)
[2020-05-21] MEDS: CALCIUM CARBONATE/VITAMIN D3 1 TAB TABLET PO SCH (09:31)
[2020-05-21] MEDS: MORPHINE SULFATE 15 MG TABLET.SA PO SCH ×2 (09:32→20:07)
[2020-05-21] MEDS: ENOXAPARIN SODIUM 40 MG/0.4 ML SYRG SC SCH (10:02)
[2020-05-21] MEDS: MELATONIN 3,000 MCG TABLET PO SCH (20:07)
[2020-05-21] MEDS: SENNOSIDES/DOCUSATE SODIUM 1 TAB TABLET PO SCH (20:07)
[2020-05-22] MEDS: oxyCODONE HCL/ACETAMINOPHEN 1 TAB TABLET PO PRN ×4 (00:18→15:43)
[2020-05-22] MEDS: KETOROLAC TROMETHAMINE 15 MG/ML VIAL IV SCH (04:17)
[2020-05-22] MEDS: MULTIVITAMINS 1 CAP CAPSULE PO SCH (08:35)
[2020-05-22] MEDS: CALCIUM CARBONATE/VITAMIN D3 1 TAB TABLET PO SCH (08:35)
[2020-05-22] MEDS: MORPHINE SULFATE 15 MG TABLET.SA PO SCH (08:36)
[2020-05-22] MEDS: FERROUS SULFATE 325 MG TABLET PO SCH (08:36)
--- NOTE | 2020-05-22 09:53 | DS ---
(1) Left hip pain Problem: Chronic (2) Status post left knee replacement Problem: Acute (3) Acute blood loss anemia Problem: Acute (4) Status post right knee replacement Problem: Acute Date of Discharge:: 05/22/20 Hospital Course: Mrs. Austin was admitted to the floor after undergoing staged bilateral total knee arthroplasties. Tolerated this well. Was admitted to the floor after each knee postoperatively for 24 hours of IV antibiotics, pain control, medical comanagement, and occupational and physical therapy. OT and PT were consulted to assist with activities of daily living and ambulation. Was made weightbearing as tolerated with range of motion as tolerated. Pain was initially controlled with IV regimen. This was transitioned to oral once tolerating a by mouth intake. Was resumed on home diet and medications. A Bell catheter was inserted in the operating room prior to the first knee which was discontinued by postoperative day 1 after the second knee. A drain was placed intraoperatively into the knees which was discontinued on postoperative day 1 of each knee respectively. Lovenox, SCDs, and JUDITH hose were utilized for DVT prophylaxis. Vital signs remained stable to the hospital course. Labs were obtained which showed a final hemoglobin of 8.8 grams. Pre-op hemoglobin was 12.3. She was asymptomic and thus the acute blood loss anemia will be monitored and treated with iron and monitored clinically. BMP was reviewed and was stable. Physical examination throughout the hospital course showed an extremity that had sensation that was intact to light touch, palpable pulses, a benign wound, motor intact to the toes, ankle, and knee. Knee range of motion was approximately 0 degrees to 40 degrees. Once an oral pain regimen was tolerated and physical therapy goals were met, it was felt that they were stable for discharge to home. Instructions: Continue with weightbearing as tolerated and range of motion as tolerated. It i s okay to shower and get the wound wet as long as there is no drainage from the wound. Do not bathe or soak the wound. If there is any drainage from the wound keep the wound clean and dry and cover with dry gauze and tape. Change every 2- 3 days as needed if there is any drainage. Cover wound while showering if there is any drainage. Continue with physical therapy. Resume home diet. Report any fever over 101.5 Fahrenheit, uncontrolled pain, increased drainage, foul odor of drainage, new or increased calf pain or shortness of breath, or any other significant complaints. A 325mg daily aspirin will be started after finishing anticoagulation if not allergic. Continue with JUDITH hose on the operative extremity until instructed otherwise. No driving until instructed otherwise. Follow up in approximately 2-3 weeks. Procedures Performed: see notes below List Procedures: Bilateral total knee arthroplasty Results and Findings: Lab Pending Results 05/19/20 06:25: WBC 9.0, RBC 3.56 L, Hgb 11.1 L, Hct 33.4 L, MCV 93.8, MCH 31.2 H, MCHC 33.2, RDW 11.9, Plt Count 185, MPV 9.2 05/19/20 06:25: Sodium 137, Plasma Sodium 137, Potassium 3.7, Chloride 102, Carbon Dioxide 33.0 H, Anion Gap 5.7 L, BUN 7 D, Creatinine 0.67, Est GFR (Non- Af Amer) 95, BUN/Creatinine Ratio 10.4, Random Glucose 108, Calcium 9.1 05/21/20 06:28: WBC 9.0, RBC 2.83 L, Hgb 8.8 L, Hct 26.8 L, MCV 94.7, MCH 31.1 H, MCHC 32.8, RDW 11.9, Plt Count 170, MPV 9.7 05/21/20 06:28: Sodium 136, Plasma Sodium 136, Potassium 3.8, Chloride 102, Carbon Dioxide 31.1, Anion Gap 6.7 L, BUN 6, Creatinine 0.68, Est GFR (Non-Af Amer) 94, BUN/Creatinine Ratio 8.8 L, Random Glucose 111 H, Calcium 8.4 Discharge Location: Home Disposition: Home self-care Condition: Good Discharge Activity: Activity as tolerated, Weight bearing Discharge Diet: General/regular food Referrals: Dee Dee Batista MD [Primary Care Provider] - Rodrigo King MD [Staff Physician] - 06/11/20 9:45 am Problem Oriented Discharge Instructions to Patient/Family: Total Knee Replacement, Care After, [id number] Additional Patient Instructions (free text): Physical Therapy at [facility] in [place] on MondayMay 25 at 9:15am. Please fax demographic and PT order to [phone]. Follow up Orthopedic office appointment on June 11 at 9:45am. Prescriptions (Any new or edited meds): Ferrous Sulfate 325 mg PO BIDWM #60 tab Transmission Status: Pending to [facility] #[id number] Enoxaparin Sodium [Lovenox] 40 mg SC Q24H #7 disp.syrin Transmission Status: Pending to [facility] #[id number] Morphine Sulfate [Ms Contin] 15 mg PO Q12H #10 tablet.sa Transmission Status: Sent to [facility] #[id number] oxyCODONE HCL/ACETAMINOPHEN [Percocet 5 MG/325 MG] 1 - 2 tab PO Q4H PRN #60 tab PRN Reason: Moderate Pain (Pain Scale 4-6) Transmission Status: Sent to [facility] #[id number] Sennosides/Docusate Sodium [Senokot-S] 2 tab PO HS #60 tab Transmission Status: Pending to [facility] #[id number] Complete Home Medications List: Complete Home Medication List: glucosamine HCl 500 mg tablet 500 mg PO DAILY 05/23/19 ibuprofen 200 mg tablet 400 mg PO TID-QID PRN tab 05/23/19 multivitamin 1 cap PO DAILY 05/23/19 calcium carbonate 600 mg (1,500 mg)-vitamin D3 500 unit capsule 1 cap PO DAILY 04/28/20 diphenhydramine HCl 25 mg capsule 50 mg PO HS cap 04/28/20 melatonin 10 mg capsule 10 mg PO HS 04/28/20 Enoxaparin Sodium [Lovenox] 40 mg SC Q24H #7 disp.syrin 05/22/20 Ferrous Sulfate 325 mg PO BIDWM #60 tab 05/22/20 Morphine Sulfate [Ms Contin] 15 mg PO Q12H #10 tablet.sa 05/22/20 Sennosides/Docusate Sodium [Senokot-S] 2 tab PO HS #60 tab 05/22/20 oxyCODONE HCL/ACETAMINOPHEN [Percocet 5 MG/325 MG] 1 - 2 tab PO Q4H PRN #60 tab 05/22/20 Amb Orders for Discharge: PT Evaluation and Treatment* Facility: [facility], Location: Rehabilitation Services
[2020-05-22] MEDS: ENOXAPARIN SODIUM 40 MG/0.4 ML SYRG SC SCH (13:06)
[2020-05-22 15:04] VITALS: BP 151/59
== END 2020-05-22 16:30 | disposition home or self-care (01) | DRG 462 ==
LOC: MS 08:21 → EDSTATUS 10:45
PROVIDERS: ADMIT Orthopaedic Surgery; ATTEND Orthopaedic Surgery
DX: D62 Acute posthemorrhagic anemia; K58.9 Irritable bowel syndrome, unspecified; M17.11 Unilateral primary osteoarthritis, right knee; M17.12 Unilateral primary osteoarthritis, left knee; E66.9 Obesity, unspecified; Z68.38 Body mass index [BMI] 38.0-38.9, adult
CPT/HCPCS: 36415; 73560; 80048; 85027; 97110; 97116; 97161; 97164; 97165; 97535; J2405

== ENCOUNTER 2021-04-12 06:24 | Inpatient (IN) ==
[~2021-04-12 06:24] MED LIST changes: -ISOPROPYL ALCOHOL 480 APPL BTL MC ONE; -ROPIVACAINE HCL/PF 100 MG, EPINEPHrine 0.2 MG, KETOROLAC TROMETHAMINE 30 MG in NORMAL S... IJ PRN; +ROPIVACAINE/CLONIDIN/KETOROLAC 50 ML SYRINGE IJ PRN; -TRANEXAMIC ACID 1,000 MG in NORMAL SALINE 100 ML IV PRN; +TRANEXAMIC ACID IN NACL,ISO-OS 1,000 MG/100 ML BAG IV PRN; -ceFAZolin SODIUM 1 GM VIAL ONE
[2021-04-12] MEDS ORDERED: ISOPROPYL ALCOHOL 480 APPL BTL MC ONE (06:40)
[2021-04-12] MEDS ORDERED: ceFAZolin SODIUM 1 GM VIAL ONE (06:40)
[2021-04-12] MEDS ORDERED: ROPIVACAINE/CLONIDIN/KETOROLAC 50 ML SYRINGE IJ ONE (06:40)
[2021-04-12] MEDS ORDERED: LIDOCAINE HCL 20 ML VIAL ONE (07:04)
[2021-04-12] MEDS ORDERED: MIDAZOLAM HCL/PF 5 MG/ML VIAL ONE (07:04)
[2021-04-12] MEDS ORDERED: PROPOFOL VIAL IV ONE ×2 (07:04→09:32)
[2021-04-12] MEDS ORDERED: BUPIVACAINE HCL/PF 10 ML VIAL ONE (07:04)
[2021-04-12] MEDS ORDERED: NORMAL SALINE 20 ML VIAL ONE (07:04)
[2021-04-12] MEDS: RINGER'S SOLUTION,LACTATED 1,000 ML IV PRN ×3 (07:13→09:05)
--- NOTE | 2021-04-12 07:29 | ANES ---
Anesthesia Pre Procedure Eval Vitals/Labs: Last Vital Signs Temp 37.2 C 04/12/21 06:34 Pulse 70 04/12/21 06:34 Resp 16 04/12/21 06:34 BP 146/81 04/12/21 06:34 Pulse Ox 95 04/12/21 06:34 HOME MEDICATIONS ibuprofen 200 mg tablet 400 mg PO TID-QID PRN tab 05/23/19 [Last Taken 04/05/21] calcium carbonate 600 mg (1,500 mg)-vitamin D3 500 unit capsule 1 cap PO DAILY 04/28/20 [Last Taken Unknown] melatonin 10 mg capsule 10 mg PO HS 04/28/20 [Last Taken Unknown] acetaminophen 500 mg tablet 500 mg PO Q6H PRN 08/03/20 [Last Taken Unknown] cetirizine 10 mg tablet 10 mg PO DAILY PRN 02/10/21 [Last Taken Unknown] ferrous sulfate 325 mg (65 mg iron) tablet 325 mg PO DAILY 02/10/21 [Last Taken Unknown] Hydroxyzine HCl 50 mg PO HS 04/12/21 [Last Taken Unknown] Multivitamin 1 ea PO 04/12/21 [Last Taken Unknown] Allergies/Adverse Reactions: Allergies Allergy/AdvReac Type Severity Reaction Status Date / Time No Known Allergies Allergy Verified 04/12/21 06:47 - Planned Procedure Planned Procedure: Arthroplasty L Total Hip Medication List Reviewed:: Yes Allergies Verified: Yes Medical History (Last Reviewed 04/12/21 @ 07:28 by Perez Tucker CRNA) Bilateral knee pain Onset Date: Unknown Irritable bowel syndrome (IBS) Onset Date: Unknown Seasonal allergies Onset Date: Unknown COVID-19 vaccine series completed Onset Date: 01/15/21 Moderna- both doses 12/2020 and 01/2021 Surgical History (Last Reviewed 04/12/21 @ 07:28 by Perez Tucker CRNA) History of bilateral knee arthroplasty Onset Date: ~05/202005-18-20 RTKA----05-20-20 VICKI iKng History of knee surgery Onset Date: 08/10/20 Manipulation under anesthesia of bilateral knees - History of section x2 History of tonsillectomy Onset Date: Unknown as a child Family History (Last Reviewed 04/12/21 @ 07:28 by Perez Tucker CRNA) Mother A-fib Hypertension Kidney failure Father Motor vehicle accident - Family Anesthesia History Family History:: no untoward family reactions to anesthesia - Airway/Neck/Teeth Within Normal Limits:: Yes Teeth Condition: intact Neck Exam: full range of motion Mallampatti Score: 2 Thyromental (T-M) distance: > 6 cm Mandibulo Hyoid distance: > 3 cm - Respiratory Respiratory Physical: lungs clear Smoking Status: Never smoker Sleep Apnea currently treated: No Sleep Apnea by current assessment: No - Cardiovascular Tolerate Activity: Fair Heart Sounds: S1 & S2, Regular - Gastrointestinal NPO since: MN - Anesthesia Assessment and Plan ASA Class: PS, II Anesthesia Type Plan: Spinal Planned difficult intubation/equipment available: No
[2021-04-12] MEDS ORDERED: MAGNESIUM HYDROXIDE 30 ML UDC PO PRN (09:38)
[2021-04-12] MEDS ORDERED: ONDANSETRON HCL/PF 2 MG/ML VIAL IV PRN (09:38)
[2021-04-12] MEDS ORDERED: ACETAMINOPHEN 500 MG TABLET PO PRN (09:38)
[2021-04-12] MEDS ORDERED: diphenhydrAMINE HCL 50 MG/ML VIAL IV PRN (09:38)
[2021-04-12] MEDS ORDERED: MAG HYDROX/ALUMINUM HYD/SIMETH 30 ML UDC PO PRN (09:38)
[2021-04-12] MEDS ORDERED: ZOLPIDEM TARTRATE 5 MG TABLET PO PRN (09:38)
[2021-04-12] MEDS ORDERED: MORPHINE SULFATE 2 MG/ML DISP.SYRIN IV PRN (09:38)
[2021-04-12] MEDS ORDERED: DEXTROSE 5%-LACTATED RINGERS 1,000 ML IV PRN (09:38)
[2021-04-12] MEDS ORDERED: LORATADINE 10 MG TABLET PO PRN (09:39)
--- NOTE | 2021-04-12 09:45 | OR ---
Operative Report - Dictated Report Narrative: Date: 04/12/2021 Preoperative diagnosis: Left hip degenerative joint disease. Postoperative diagnosis: Left hip degenerative joint disease. Procedure: Left total hip arthroplasty. Surgeon: Rodrigo King M.D. Rim Roller Operator: Flo Ryan PA-C (provided an essential set of skilled, educated and assisted with transfer, positioning, prepping, draping, manipulation, traction, irrigation, suturing, and placement of dressings all of which cannot be performed by the available surgical crew) Anesthesia: Spinal and local periarticular joint injection. Complications: None Specimens: Bone. Estimated blood loss: 100 milliliters. Retained implants: Depuy Gillespie size 3 femoral stem standard offset. Size 52 millimeter outside diameter 3-hole [place] Gription acetabular cup. 52 millimeter outside by 36 millimeter inside diameter highly cross-linked acetabular liner. 36 millimeter diameter + 1.5 millimeter ceramic femoral head. Cancellous 6.5mm screw 30 millimeter length Indications: Mrs. Austin is a 60-year-old female who has had longstanding left hip pain and arthrosis. This patient was followed in my clinic for period of time with significant complaints of left hip pain consistent with arthritic changes. She failed conservative measures including but not limited to activity modification, passage of time, medications, and other conservative measures. Patient wished to proceed with surgical treatment. The risks, benefits, and alternatives were discussed in clinic. The risks of , blood clots, bleeding, infection, nerve/tendon blood vessel/ injury, malposition of components, dislocation and/or instability of joint, intraoperative fracture, p ostoperative limited range of motion, persistent pain, failure of components, and need for additional procedures. Patient wished to proceed. Consent was obtained after answering all questions. Procedure: After marking the correct extremity on the floor, the patient was taken to the operating room. A timeout was performed. IV antibiotics consisting of Ancef were administered prior to the procedure. A spinal anesthetic was induced by anesthesia. A Bell catheter was inserted. The patient was then transitioned to a lateral position on a well-padded pegboard. An axillary roll was placed. The head was in neutral position. The non- operative down leg was well-padded with SCD and JUDITH hose in place. The arms were supported and padded to protect from any undue pressure on the bony promin ences and nerves. A well-padded anterior and posterior pelvic and chest posts were secured in order to maintain a stable position of the pelvis. This was placed so that the pelvis was perpendicular to the floor. The body was in line with the pelvis. Once it was felt that we had protected all the bony prominences and the patient was well secured with a safety belt as well, the leg was pre-scrubbed with alcohol, prepped and draped in a standard sterile fashion. A standard anterior lateral hip incision was marked out over the greater trochanter. Ioban drapes were then placed. The skin incision was then made. Sharp dissection with a scalpel utilizing cautery for hemostasis was carried out down to the gluteus and iliotibial band fascia. This was split in line with the skin incision. The greater trochanter bursa was excised. The anterior and posterior margins of the abductor tendon were identified. The anterior 1/2-1/3 of the tendon was tagged and reflected off the greater trochanter leaving a sleeve of tendon for repair at the completion of the case. This exposed the underlying hip joint capsule. An inverted T-type capsulotomy was made extending this up to the brim of the acetabulum. Using Homans to assist with elevation of the soft tissues off the anterior, superior, and inferior aspects of the femoral neck, the hip was then placed in a figure 4 position and the f emoral head was dislocated. With the leg in an externally rotated and adducted position, the cutting flag was utilized in order to kemi for a standard femoral neck cut approximately a fingerbreadth above the level of the lesser trochanter. This was done with reference to pre-operative films and overall alignment. This was done while protecting the surrounding soft tissues with Homans. The femoral head was then removed and sized for guidance on preparation of the acetabulum. It was noted that there was loss of articular cartilage on both the femoral head and weightbearing portions of the acetabulum. We then returned the leg to the table and turned our attention to the acetabulum. While protecting the surrounding soft tissues, the labrum and remaining tissue in the fovea were excised using a scalpel and cautery. A series of reamers up to size 52 millimeter were utilized to prepare the acetabulum. The final reamer had good purchase and exposed the bleeding subchondral bone. The acetabulum was then thoroughly irrigated ensuring that all bony and cartilaginous materials were removed, and the final acetabular shell was impacted into place. This was placed in approximately 45 degrees of abduction and 20 degrees of anteversion utilizing the outrigger and body axis for alignment. This had a good press fit. 1 6.5mm cancellous screw was placed in the superior posterior quadrant of the acetabulum. The shell was then thoroughly irrigated and the final polyethylene was impacted into place ensuring that it seated completely. This was then protected with a sponge while we returned our attention to the femur. With the leg in a figure 4 position, utilizing Homans for soft tissue protection, a box cutting osteotome, followed by Charnley awl, followed by serial reamers and broaches were utilized in order to prepare the femur. It was found that a size 3 broach gave good axial and rotational stability. The calcar reamer was utilized in order to clean up the cut edges. The proximal femur was visualized to ensure that there were no signs of fracture. A series of heads and necks were trialed. It was found that a standard offset neck and a + 1.5 femoral head gave good overall stability. There was minimal longitudinal instability. With the leg in the position of sleep, the femoral head was well covered. Hip range of motion was able to reach full extension and external rotation to greater than 75 degrees prior to impingement along the posterior acetabulum. The hip was able to be flexed to greater than 90 degrees with internal rotation greater than 60 degrees prior to anterior impingement. The limb lengths were near equal based on comparison to the contralateral side and the prior placed limb length stitch. At this point it was felt these were the appropriately sized femoral components as well as neck and femoral head. The trial implants were removed. The femur was thoroughly irrigated. The final implants were impacted into place, and the hip was reduced. After ensuring that there was no damage to the proximal femur, the standard periarticular joint injection of ropivacaine, Toradol, and epinephrine were injected into the joint capsule and surrounding soft tissues. Anesthesia then administered intravenous tranexamic acid. The capsule was repaired with a single interrupted #1 Vicryl. The abductor tendon was repaired to the greater trochanter utilizing #5 Ethibond through drill holes. This was oversewn with #1 Vicryl. The fascia was closed with interrupted #1 Vicryl and #1 Stratafix barbed suture. The wounds were thoroughly irrigated as we closed in layers. The deep and subcutaneous fat layers were closed with 0 and 3-0 Vicryl respectively. The subcutaneous tissue was closed with a running 3-0 Vicryl and the skin rosina. All sponge, needle, blade, and instrument counts were correct prior to closing the wounds. Sterile dressings consisting of xeroform, 4 x 4's, and tape were applied. The patient was awoken and tra nsferred to her hospital bed and then to the postanesthesia care unit in stable condition. Postoperative condition: The plan is to admit to the medical/surgical inpatient floor postoperatively. There will be a projected 1 to 3 day hospital stay. Postoperatively 24 hours of IV antibiotics, pain control, physical therapy, occupational therapy, and medical comanagement will be utilized. Patient will be weightbearing as tolerated with anterior hip precautions. Postoperative films will be obtained in the recovery room.
--- NOTE | 2021-04-12 10:15 | ANES ---
Post Anesthesia Discharge - Transfer of Care Transfer of Care handoff given to nurse: Yes - Discharge from PACU Discharge from PACU when meets criteria: Yes
--- NOTE | 2021-04-12 11:14 | ANES ---
Post Anesthesia Assessment - Vital Signs Vitals: Last Vital Signs Temp 36.0 C 04/12/21 10:20 Pulse 61 04/12/21 11:00 Resp 16 04/12/21 11:00 BP 162/84 H 04/12/21 11:00 Pulse Ox 95 04/12/21 11:00 Airway Patency: Normal - Mental Status Level Of Consciousness: Awake - Pain Level Pain Score: 0 - N/V Assessment Nausea/Vomiting Presence: None Dehydration:: No
[2021-04-12] MEDS: oxyCODONE HCL/ACETAMINOPHEN 1 TAB TABLET PO PRN ×2 (11:27→15:29)
[2021-04-12] MEDS: KETOROLAC TROMETHAMINE 15 MG/ML VIAL IV SCH ×3 (11:46→22:38)
[2021-04-12] MEDS: ceFAZolin SODIUM 1 GM in DEXTROSE 5 % IN WATER 100 ML IV SCH ×6 (12:13→22:39)
[2021-04-12] MEDS: MORPHINE SULFATE 15 MG TABLET.SA PO SCH (20:27)
[2021-04-12] MEDS ORDERED: MELATONIN 3,000 MCG TABLET PO SCH (21:00)
[2021-04-12] MEDS ORDERED: SENNOSIDES/DOCUSATE SODIUM 1 TAB TABLET PO SCH (21:00)
[2021-04-12] MEDS ORDERED: hydrOXYzine HCL 25 MG TABLET PO SCH (21:00)
[2021-04-13] MEDS: oxyCODONE HCL/ACETAMINOPHEN 1 TAB TABLET PO PRN ×3 (01:21→13:12)
[2021-04-13] MEDS: KETOROLAC TROMETHAMINE 15 MG/ML VIAL IV SCH ×3 (05:01→17:10)
[2021-04-13 06:25] LABS: Hematocrit 29.1 % (37.0-47.0); Hemoglobin 9.7 gm/dL (12.5-16.0); Mean Cell Volume 95.4 fl (78-100); Mean Corpuscular Hemoglobin 31.8 pg (27-31); Mean Corpuscular Hgb Conc 33.3 g/dl (32-36); Mean Platelet Volume 9.1 fl (8-12.5); Platelet Count 159 K/mm3 (150-450); Red Blood Count 3.05 M/mm3 (4.2-5.4); Red Cell Distribution Width 12.3 % (11.5-14.0); White Blood Count 7.8 K/mm3 (4.0-10.5)
[2021-04-13 06:34] LABS: Anion Gap 13.4 mmol/L (6.8-13.8); BUN/Creatinine Ratio 15.4 (9.0-21.6); Calcium * 8.3 mg/dL (7.9-10.9); Carbon Dioxide 25.6 mmol/L (24-32.6); Estimated Creat Clear 53.7
[2021-04-13] MEDS: MORPHINE SULFATE 15 MG TABLET.SA PO SCH (08:25)
[2021-04-13] MEDS ORDERED: ENOXAPARIN SODIUM 40 MG/0.4 ML SYRG SC SCH (08:38)
[2021-04-13] MEDS ORDERED: FERROUS SULFATE 325 MG TABLET PO SCH (09:00)
[2021-04-13] MEDS ORDERED: CALCIUM CARBONATE/VITAMIN D3 1 TAB TABLET PO SCH (09:00)
--- NOTE | 2021-04-13 15:46 | DS ---
(1) Status post left hip replacement Problem: Acute (2) Anemia Problem: Acute (3) Seasonal allergies Problem: Chronic Date of Discharge:: 04/13/21 Hospital Course: Mrs. Austin was admitted to the floor after undergoing left total hip arthroplasty. Tolerated this well. Was admitted to the floor postoperatively for 24 hours of IV antibiotics, pain control, medical comanagement, and occupational and physical therapy. OT and PT were consulted to assist with activities of daily living and ambulation. Was made weightbearing as tolerated with anterior hip precautions. Pain was initially controlled with IV regimen. This was transitioned to oral once tolerating a by mouth intake. Was resumed on home diet and medications. A Bell catheter was inserted in the operating room which was discontinued by postoperative day 1. Lovenox, SCDs, and JUDITH hose were utilized for DVT prophylaxis. Vital signs remained stable to the hospital course. Labs were obtained which showed a final hemoglobin of 9.7 grams. BMP was reviewed and was stable. Physical examination throughout the hospital course showed an extremity that had sensation that was intact to light touch, palpable pulses, a benign wound, motor intact to the toes, ankle, and knee. Once an oral pain regimen was tolerated and physical therapy goals were met, it was felt that they were stable for discharge to home. Instructions: Continue with weightbearing as tolerated and anterior hip precautions. Do not bathe or soak the wound. Keep the wound clean and dry and cover with dry gauze and tape. Change every 2-3 days as needed if there is any drainage. Cover wound while showering. Continue with physical therapy. Resume home diet. Report any fever over 101.5 Fahrenheit, uncontrolled pain, increased drainage, foul odor of drainage, new or increased calf pain or shortness of breath, or any other significant complaints. 81 mg twice daily aspirin will be utilized for DVT prophylaxis. Continue with JUDITH hose on the operative extremity until instructed otherwise. No driving until instructed otherwise. Follow up in approximately 2-3 weeks. Procedures Performed: see notes below List Procedures: Left total hip arthroplasty Results and Findings: Lab Pending Results 04/13/21 06:20: WBC 7.8, RBC 3.05 L, Hgb 9.7 L, Hct 29.1 L, MCV 95.4, MCH 31.8 H, MCHC 33.3, RDW 12.3, Plt Count 159, MPV 9.1 04/13/21 06:20: Sodium 140, Plasma Sodium 140, Potassium 4.0, Chloride 105, Carbon Dioxide 25.6, Anion Gap 13.4, BUN 14, Creatinine 0.91, Est GFR (Non-Af Amer) 67, BUN/Creatinine Ratio 15.4, Random Glucose 99, Calcium 8.3 Discharge Location: Home Disposition: Home self-care Condition: Good Discharge Activity: Weight bearing, Other - Anterior hip precautions no active abduction Discharge Diet: General/regular food Referrals: Dee Dee Batista MD [Primary Care Provider] - Additional Patient Instructions (free text): Physical therapy at [facility] in [place] on MondayApril 12 at 8:30am. Nursing please fax PT order and demographics to [phone]. [address] [facility] Orthopedic office appointment on MondayApril 27 at 9:00am. Prescriptions (Any new or edited meds): Aspirin [Adult Aspirin Regimen] 81 mg PO BID #90 tablet. Transmission Status: Pending to [facility] #[id number] Morphine Sulfate [Ms Contin] 15 mg PO Q12H #10 tablet. Transmission Status: Sent to [facility] #[id number] oxyCODONE HCL/ACETAMINOPHEN [Percocet 5 MG/325 MG] 1 - 2 tab PO Q4H PRN #50 tab PRN Reason: Moderate Pain (Pain Scale 4-6) Transmission Status: Sent to [facility] #[id number] Sennosides/Docusate Sodium [Senokot-S] 2 tab PO HS #60 tab Transmission Status: Pending to [facility] #[id number] Complete Home Medications List: Complete Home Medication List: ibuprofen 200 mg tablet 400 mg PO TID-QID PRN tab 05/23/19 calcium carbonate 600 mg (1,500 mg)-vitamin D3 500 unit capsule 1 cap PO DAILY 04/28/20 melatonin 10 mg capsule 10 mg PO HS 04/28/20 cetirizine 10 mg tablet 10 mg PO DAILY PRN 02/10/21 ferrous sulfate 325 mg (65 mg iron) tablet 325 mg PO DAILY 02/10/21 Hydroxyzine HCl 50 mg PO HS 04/12/21 Multivitamin 1 ea PO 04/12/21 Aspirin [Adult Aspirin Regimen] 81 mg PO BID #90 tablet. 04/13/21 Morphine Sulfate [Ms Contin] 15 mg PO Q12H #10 tablet.sa 04/13/21 Sennosides/Docusate Sodium [Senokot-S] 2 tab PO HS #60 tab 04/13/21 oxyCODONE HCL/ACETAMINOPHEN [Percocet 5 MG/325 MG] 1 - 2 tab PO Q4H PRN #50 tab 04/13/21 Amb Orders for Discharge: PT Evaluation and Treatment* Facility: [facility], Location: Rehabilitation Services Forms: Patient Portal Registration
[2021-04-13] MEDS ORDERED: MELATONIN 3,000 MCG TABLET PO SCH (21:00)
[2021-04-13 23:31] VITALS: BP 126/61
== END 2021-04-13 19:20 | disposition home or self-care (01) | DRG 470 ==
LOC: MS 06:24 → EDSTATUS 08:00
PROVIDERS: ADMIT Orthopaedic Surgery; ATTEND Orthopaedic Surgery